=== PATIENT | female | born 1965 | race Caucasian/White ===

== ENCOUNTER 2024-04-19 12:02 | Emergency (ER) | payer BC, OTHER ==
[~2024-04-19] VITALS: Ht 162.6 cm; Wt 72.7 kg
[2024-04-19] MEDS: proparacaine 0.5% ophthalmic drops 15ml EACHEYE ONE (13:17)
[2024-04-19] MEDS ORDERED: ERYT1OIN6 EACHEYE (13:27)
[2024-04-19 13:38] VITALS: BP 134/67; PULSE 84; RESP 16; TEMP 98.5; O2SAT 98
== END 2024-04-19 13:41 | disposition home or self-care (01) ==
LOC: ER 12:02
DX: S05.02XA Injury of conjunctiva and corneal abrasion without foreign body, left eye, initial encounter (principal); Z88.1 Allergy status to other antibiotic agents; X58.XXXA Exposure to other specified factors, initial encounter; Y93.89 Activity, other specified; Y92.89 Other specified places as the place of occurrence of the external cause; Y99.8 Other external cause status
CPT/HCPCS: 99283